=== PATIENT | male | born 1970 | race American Indian/Alaskan Native ===

== ENCOUNTER 2017-04-16 19:58 | Inpatient (IN) | payer OTHER ==
[2017-04-16] MEDS ORDERED: Sodium Chloride 0.9% 1,000 ML IV ONE ×2 (20:19→20:20)
[2017-04-16] MEDS ORDERED: (Novolin R) Insulin Human Regular 100 units/ml vial IV STA ×2 (20:21→22:03)
--- NOTE | 2017-04-16 20:23 | C.PDOC ---
History Of Present Illness 47 y/o male presents to ED for evaluation of frequent urination, and generalized weakness for the past week. Blood glucose level was found to be over 500 in the ER, pt denies any history of diabetes. Denies any other complaints. Chief Complaint (Nursing): Weakness/Neurological Deficit History Per: Patient History/Exam Limitations: no limitations Onset/Duration Of Symptoms: Days Current Symptoms Are (Timing): Still Present Past Medical History Reviewed: Historical Data, Nursing Documentation, Vital Signs Vital Signs: Last Vital Signs Temp 98.7 F 04/16/17 20:02 Pulse 103 H 04/16/17 20:02 Resp 20 04/16/17 20:02 BP 117/80 04/16/17 20:02 Pulse Ox 94 L 04/16/17 22:08 Family History: States: Unknown Family Hx - Social History Hx Alcohol Use: Yes Hx Substance Use: No Review Of Systems Except As Marked, All Systems Reviewed And Found Negative. Constitutional: Positive for: Weakness. Negative for: Fever, Chills Cardiovascular: Negative for: Chest Pain, Palpitations Respiratory: Negative for: Cough, Shortness of Breath Gastrointestinal: Negative for: Nausea, Vomiting, Abdominal Pain Genitourinary: Positive for: Frequency. Negative for: Dysuria, Hematuria, Penile Discharge Musculoskeletal: Negative for: Back Pain Neurological: Negative for: Headache, Dizziness Physical Exam - Physical Exam Appears: Non-toxic, No Acute Distress Skin: Normal Color, Warm, Dry Head: Atraumatic, Normacephalic Eye(s): bilateral: Normal Inspection Oral Mucosa: Dry Chest: Symmetrical Cardiovascular: Rhythm Regular, No Murmur Respiratory: Normal Breath Sounds, No Rales, No Rhonchi, No Wheezing Gastrointestinal/Abdominal: Soft, No Tenderness Extremity: Normal ROM, No Pedal Edema Neurological/Psych: Oriented x3, Normal Speech, No Other (no focal deficits) ED Course And Treatment - Laboratory Results Result Diagrams: 04/16/17 20:44 04/16/17 21:41 ECG: Interpreted By Me, Viewed By Me ECG Rhythm: Sinus Rhythm ECG Interpretation: No Acute Changes Interpretation Of ECG: NST, prolonged QT interval, abnormal tracings Rate From EC O2 Sat by Pulse Oximetry: 94 Pulse Ox Interpretation: Normal - Radiology CXR: Interpreted by Me, Viewed By Me CXR Interpretation: Yes: No Acute Disease, Other (normal chest film). No: Infiltrates, Cardiomegaly Medical Decision Making Medical Decision Making: Blood work, EKG, CXR, UA ordered and reviewed. Pt was given Insulin and IV fluids. Disposition Discussed With .: Raymundo Hannah Doctor Will See Patient In The: Hospital Counseled Patient/Family Regarding: Diagnosis - Disposition Disposition: HOSPITALIZED Disposition Time: 22:07 Condition: STABLE Forms: [facility] (Yi) - POA Present On Arrival: None - Clinical Impression Clinical Impression: Hyperglycemia, Diabetes mellitus, new onset - Scribe Statement The provider has reviewed the documentation as recorded by the Scribe Aminta Flowers All medical record entries made by the Scribe were at my direction and personally dictated by me. I have reviewed the chart and agree that the record accurately reflects my personal performance of the history, physical exam, medical decision making, and the department course for this patient. I have also personally directed, reviewed, and agree with the discharge instructions and disposition.
[2017-04-16] MEDS ORDERED: Sodium Chloride 0.9% 2,000 ML ONE (20:45)
[2017-04-16] MEDS ORDERED: (Novolin R) Insulin Human Regular 100 units/ml vial ONE ×2 (20:46→22:31)
[2017-04-16 20:50] LABS: BASO # 0.1 K/uL (0.0-0.2); BASO % 0.8 % (0.0-2.0); EOS # 0.4 K/uL (0.0-0.7); EOS % 4.8 % (0.0-4.0); HEMOGLOBIN 14.5 g/dL (12.0-18.0); LYMPH # 3.2 K/uL (1.0-4.3); LYMPH % 36.1 % (20.0-40.0); MEAN CELL VOLUME 87.6 fL (80.0-94.0); MEAN CORPUSCULAR HEMOGLOBIN 30.2 pg (27.0-31.0); MEAN CORPUSCULAR HGB CONC 34.5 g/dL (33.0-37.0); MEAN PLATELET VOLUME 9.9 fL (7.2-11.7); MONO # 0.7 K/uL (0.0-0.8); MONO % 7.6 % (0.0-10.0); NEUT # 4.5 K/uL (1.8-7.0); NEUT % 50.7 % (50.0-75.0); NRBC % 0.2 % (0.0-2.0); RBC 4.8 Mil/uL (4.40-5.90); RED CELL DISTRIBUTION WIDTH 13.1 % (11.5-14.5); WHITE BLOOD COUNT 8.9 K/uL (4.8-10.8)
[2017-04-16 21:01] LABS: URINE BILIRUBIN NEGATIVE (NEGATIVE); URINE BLOOD NEGATIVE (NEGATIVE); URINE CLARITY Clear (Clear); URINE COLOR Colorless (YELLOW); URINE GLUCOSE (UA) 3+ mg/dL (Normal); URINE LEUKOCYTE ESTERASE NEG Leu/uL (Negative); URINE PROTEIN NEGATIVE (NEGATIVE); URINE UROBILINOGEN NORMAL mg/dL (0.2-1.0)
--- NOTE | 2017-04-16 21:04 | RAD ---
HISTORY: Diabetic COMPARISON: None available. TECHNIQUE: Chest PA and lateral FINDINGS: Examination limited by habitus. LUNGS: No focal consolidation. Please note that chest x-ray has limited sensitivity for the detection of pulmonary masses. PLEURA: No significant pleural effusion identified. No definite pneumothorax . CARDIOVASCULAR: The cardiomediastinal silhouette appears within normal limits of size. OSSEOUS STRUCTURES: Degenerative changes of the spine. VISUALIZED UPPER ABDOMEN: Unremarkable. OTHER FINDINGS: None. IMPRESSION: No focal consolidation identified.
[2017-04-16 21:10] LABS: ALBUMIN 4.7 g/dL (3.5-5.0); ALT/SGPT 54 U/L (21-72); AST/SGOT 33 U/L (17-59); BLOOD UREA NITROGEN 20 mg/dL (9-20); CALCIUM 9.8 mg/dl (8.6-10.4); GFR AFRICAN-AMERICAN > 60; GFR NON-AFRICAN AMERICAN > 60; LIPASE 94 U/L (23-300)
[2017-04-16 21:11] LABS: ABG ALLEN TEST POS; ARTERIAL BLOOD GAS HCO3 25.9 mmol/L (21-28); ARTERIAL BLOOD GAS HEMOGLOBIN 12.7 g/dL (11.7-17.4); ARTERIAL BLOOD GAS O2 SAT 92.6 % (95-98); ARTERIAL BLOOD GAS PCO2 46 mm/Hg (35-45); ARTERIAL BLOOD GAS PH 7.38 (7.35-7.45); ARTERIAL BLOOD GAS PO2 56 mm/Hg (80-100); ARTERIAL BLOOD GAS TCO2 28.6 mmol/L (22-28)
[2017-04-16 22:00] LABS: BLOOD UREA NITROGEN 20 mg/dL (9-20); CALCIUM 9.3 mg/dl (8.6-10.4); GFR AFRICAN-AMERICAN > 60; GFR NON-AFRICAN AMERICAN > 60
[2017-04-17] MEDS ORDERED: (Lantus) Insulin Glargine, Recombinant SC ONE (09:00)
[2017-04-17] MEDS: Enoxaparin 40 mg Syringe SC SCH (09:57)
[2017-04-17] MEDS ORDERED: Sodium Chloride 0.9% 1,000 ML IV SCH (10:15)
[2017-04-17 10:52] LABS: MEAN CELL VOLUME 87.2 fL (80.0-94.0); MEAN CORPUSCULAR HEMOGLOBIN 29.8 pg (27.0-31.0); MEAN CORPUSCULAR HGB CONC 34.2 g/dL (33.0-37.0); MEAN PLATELET VOLUME 9.8 fL (7.2-11.7); RBC 4.35 Mil/uL (4.40-5.90); RED CELL DISTRIBUTION WIDTH 13.1 % (11.5-14.5); WHITE BLOOD COUNT 7.7 K/uL (4.8-10.8)
[2017-04-17 11:09] LABS: BLOOD UREA NITROGEN 18 mg/dL (9-20); CALCIUM 9.1 mg/dl (8.6-10.4); GFR AFRICAN-AMERICAN > 60; GFR NON-AFRICAN AMERICAN > 60
[2017-04-17] MEDS ORDERED: (Novolog) Insulin Aspart, Recombinant 100 u/ml 10 ml vial SC SCH (11:30)
[2017-04-17] MEDS: (Novolog) Insulin Aspart, Recombinant 100 u/ml 10 ml vial SC SCH ×3 (13:17→22:07)
[2017-04-17] MEDS: Sodium Chloride 0.9% 1,000 ML IV SCH ×2 (16:17→21:10)
[2017-04-17] MEDS ORDERED: (Lantus) Insulin Glargine, Recombinant SC SCH (22:00)
--- NOTE | 2017-04-17 22:25 | CP.PCM.PN ---
Subjective - Date & Time of Evaluation Date of Evaluation: 04/17/17 Time of Evaluation: 17:00 - Subjective Subjective: Pt is seen and evaluated during routine follow up rounds today Objective - Vital Signs/Intake and Output Vital Signs (last 24 hours): Temp Pulse Resp BP Pulse Ox 98.1 F 67 20 124/77 97 04/17/17 16:00 04/17/17 16:00 04/17/17 16:00 04/17/17 16:00 04/17/17 16:00 - Medications Medications: Current Medications Enoxaparin Sodium (Lovenox) 40 mg SC DAILY [facility] Last Admin: 04/17/17 09:57 Dose: 40 mg Sodium Chloride (Sodium Chloride 0.9%) 1,000 mls @ 200 mls/hr IV .Q5H [facility] Last Admin: 04/17/17 21:10 Dose: 200 mls/hr Insulin Aspart (Novolog) 0 unit SC ACHS [facility] PRN Reason: Protocol Last Admin: 04/17/17 22:07 Dose: 3 unit Insulin Glargine (Lantus) 20 unit SC [facility] Last Admin: 04/17/17 22:08 Dose: 20 units Metformin HCl (Glucophage) 500 mg PO BID [facility] Last Admin: 04/17/17 17:20 Dose: 500 mg Rosuvastatin Calcium (Crestor) 20 mg PO HS [facility] Last Admin: 04/17/17 22:08 Dose: 20 mg - Labs Labs: 04/17/17 10:47 04/17/17 10:47
[2017-04-18] MEDS: Sodium Chloride 0.9% 1,000 ML IV SCH ×3 (08:04→14:00)
[2017-04-18] MEDS: (Novolog) Insulin Aspart, Recombinant 100 u/ml 10 ml vial SC SCH ×4 (08:25→21:26)
[2017-04-18] MEDS: Enoxaparin 40 mg Syringe SC SCH (09:31)
[2017-04-18] MEDS: (Lantus) Insulin Glargine, Recombinant SC SCH (17:30)
--- NOTE | 2017-04-18 20:22 | CARD ---
APPROVED REPORT EKG Measurement Heart [id number] <Conclusion> Normal sinus rhythm Prolonged QT Abnormal ECG
--- NOTE | 2017-04-18 22:49 | CP.PCM.PN ---
Subjective - Date & Time of Evaluation Date of Evaluation: 04/18/17 Time of Evaluation: 19:40 - Subjective Subjective: Pt is seen and examined today, blood sugars are high, on sliding scale insulin and given diabetic information Objective - Vital Signs/Intake and Output Vital Signs (last 24 hours): Temp Pulse Resp BP Pulse Ox 98.4 F 79 20 132/67 95 04/18/17 15:49 04/18/17 15:49 04/18/17 15:49 04/18/17 15:49 04/18/17 15:49 Intake and Output: 04/18/17 04/19/17 18:59 06:59 Intake Total 1880 800 Balance 1880 800 - Medications Medications: Current Medications Docusate Sodium (Colace) 100 mg PO BID [facility] Last Admin: 04/18/17 17:33 Dose: Not Given Enoxaparin Sodium (Lovenox) 40 mg SC DAILY [facility] Last Admin: 04/18/17 09:31 Dose: 40 mg Insulin Aspart (Novolog) 0 unit SC [facility] PRN Reason: Protocol Last Admin: 04/18/17 21:26 Dose: 3 unit Insulin Glargine (Lantus) 20 unit SC BID [facility] Last Admin: 04/18/17 17:30 Dose: 20 units Metformin HCl (Glucophage) 500 mg PO BID [facility] Last Admin: 04/18/17 17:30 Dose: 500 mg Rosuvastatin Calcium (Crestor) 20 mg PO [facility] Last Admin: 04/18/17 21:26 Dose: 20 mg - Labs Labs: 04/17/17 10:47 04/17/17 10:47 - Constitutional Appears: No Acute Distress - Head Exam Head Exam: ATRAUMATIC, NORMAL INSPECTION, NORMOCEPHALIC - Eye Exam Eye Exam: EOMI, Normal appearance, PERRL Pupil Exam: NORMAL ACCOMODATION, PERRL - Respiratory Exam Respiratory Exam: Clear to Ausculation Bilateral, NORMAL BREATHING PATTERN - Cardiovascular Exam Cardiovascular Exam: REGULAR RHYTHM, +S1, +S2. absent: Murmur - GI/Abdominal Exam GI & Abdominal Exam: Soft, Normal Bowel Sounds. absent: Tenderness Assessment and Plan (1) Diabetes mellitus, new onset Status: Acute (2) Hyperglycemia Status: Acute
[2017-04-19 07:33] LABS: HEMOGLOBIN 13.1 g/dL (12.0-18.0); MEAN CELL VOLUME 85.7 fL (80.0-94.0); MEAN CORPUSCULAR HEMOGLOBIN 29.9 pg (27.0-31.0); MEAN CORPUSCULAR HGB CONC 34.8 g/dL (33.0-37.0); RBC 4.39 Mil/uL (4.40-5.90); RED CELL DISTRIBUTION WIDTH 12.7 % (11.5-14.5); WHITE BLOOD COUNT 6.6 K/uL (4.8-10.8)
[2017-04-19 07:40] VITALS: O2SAT 96
[2017-04-19 07:46] LABS: BLOOD UREA NITROGEN 12 mg/dL (9-20); CALCIUM 8.7 mg/dl (8.6-10.4); GFR AFRICAN-AMERICAN > 60; GFR NON-AFRICAN AMERICAN > 60
[2017-04-19] MEDS: (Novolog) Insulin Aspart, Recombinant 100 u/ml 10 ml vial SC SCH ×2 (08:25→12:25)
[2017-04-19] MEDS: Enoxaparin 40 mg Syringe SC SCH (09:56)
[2017-04-19] MEDS: (Lantus) Insulin Glargine, Recombinant SC SCH (09:58)
--- NOTE | 2017-04-19 14:03 | CP.PCM.PN ---
Subjective - Date & Time of Evaluation Date of Evaluation: 04/19/17 Time of Evaluation: 14:03 - Subjective Subjective: PATIENT WAS ADMITTED FOR HYPERGLYCEMIA DENIES CHEST PAIN; SOB / NAUSEA OR VOMITING/ LEG PAIN OR BLURRED VISION NO SIGN OF DISTRESS NOTED Objective - Vital Signs/Intake and Output Vital Signs (last 24 hours): Temp Pulse Resp BP Pulse Ox 98.7 F 82 18 115/72 96 04/19/17 07:10 04/19/17 07:10 04/19/17 07:10 04/19/17 07:10 04/19/17 07:10 Intake and Output: 04/19/17 04/19/17 06:59 18:59 Intake Total 800 Balance 800 - Medications Medications: Current Medications Docusate Sodium (Colace) 100 mg PO BID [facility] Last Admin: 04/19/17 09:57 Dose: Not Given Enoxaparin Sodium (Lovenox) 40 mg SC DAILY [facility] Last Admin: 04/19/17 09:56 Dose: 40 mg Insulin Aspart (Novolog) 0 unit SC [facility] PRN Reason: Protocol Last Admin: 04/19/17 12:25 Dose: 8 unit Insulin Glargine (Lantus) 20 unit SC BID [facility] Last Admin: 04/19/17 09:58 Dose: 20 units Metformin HCl (Glucophage) 500 mg PO BID [facility] Last Admin: 04/19/17 09:56 Dose: 500 mg Rosuvastatin Calcium (Crestor) 20 mg PO [facility] Last Admin: 04/18/17 21:26 Dose: 20 mg - Labs Labs: 04/19/17 07:10 04/19/17 07:09 Assessment and Plan - Assessment and Plan (Free Text) Assessment: PATIENT IS SEEN AND EXAMINED BY DR SANDOVAL AND COMPUTER NUMERICAL CONTROL MACHINIST DIABETIC NURSE CONSULTED/ INSTRUCT PATIENT ABOUT DM AND INSULIN INJECTION AND S/ S OF HYPOGLYCEMIA PATIENT STATED THAT HE FEEL CONFIDENT ON HOW TO DO INJECTION/ HYPOGLYCEMIA S/S / AND HOW TO CHECK A BLOOD SUGAR AT HOME FOLLOW UP WITH DR SANDOVAL IN 1-2 WEEK AT HIS OFFICE --CALL FOR YOUR APPOINTMENT CONTINUE ALL YOUR HOME MEDICATION NEW PRESCRIPTION GIVEN BY DR SANDOVAL ]TUOJEO 40 UNIT AT HS 4 VIAL CHEMISTRIP TO CHECK BLOOD SUGAR THREE TIME A DAY LANCET TO CHECK BLOOD SUGAR THREE TIME A DAY GLUCOMETER GLUCOPAHGE 850 MG ALOGLIPTIN 25 MG BY MOUTH DAILY BD INSULIN SYRINGE ACTIVITY TOLERATED CALL DR SANDOVAL OR GO TO THE EMERGENCY ROOM IF SYMPTOMS RETURN OR WORSENING DISCUSS WITH PATIENT WHO AGREE AND VERBALIZED UNDERSTANDING
[2017-04-19 15:50] VITALS: BP 110/72; PULSE 83; RESP 20; TEMP 98.1
--- NOTE | 2017-04-19 23:32 | CP.PCM.DIS ---
Provider - Provider Date of Admission: 04/16/17 22:08 Attending physician: Raymundo Hannah MD Time Spent in preparation of Discharge (in minutes): 45 Diagnosis - Discharge Diagnosis (1) Diabetes mellitus, new onset Status: Acute (2) Hyperglycemia Status: Acute Hospital Course - Lab Results Lab Results: Most Recent Lab Values WBC 6.6 K/uL (4.8-10.8) 04/19/17 07:10 RBC 4.39 Mil/uL (4.40-5.90) L 04/19/17 07:10 Hgb 13.1 g/dL (12.0-18.0) 04/19/17 07:10 Hct 37.6 % (35.0-51.0) 04/19/17 07:10 MCV 85.7 fL (80.0-94.0) 04/19/17 07:10 MCH 29.9 pg (27.0-31.0) 04/19/17 07:10 MCHC 34.8 g/dL (33.0-37.0) 04/19/17 07:10 RDW 12.7 % (11.5-14.5) 04/19/17 07:10 Plt Count 216 K/uL (130-400) 04/19/17 07:10 MPV 10.0 fL (7.2-11.7) 04/19/17 07:10 Neut % (Auto) 50.7 % (50.0-75.0) 04/16/17 20:44 Lymph % (Auto) 36.1 % (20.0-40.0) 04/16/17 20:44 [place] % (Auto) 7.6 % (0.0-10.0) 04/16/17 20:44 Eos % (Auto) 4.8 % (0.0-4.0) H 04/16/17 20:44 Baso % (Auto) 0.8 % (0.0-2.0) 04/16/17 20:44 Neut # (Auto) 4.5 K/uL (1.8-7.0) 04/16/17 20:44 Lymph # (Auto) 3.2 K/uL (1.0-4.3) 04/16/17 20:44 [place] # (Auto) 0.7 K/uL (0.0-0.8) 04/16/17 20:44 Eos # (Auto) 0.4 K/uL (0.0-0.7) 04/16/17 20:44 Baso # (Auto) 0.1 K/uL (0.0-0.2) 04/16/17 20:44 Puncture Site Rradial 04/16/17 21:00 pCO2 46 mm/Hg (35-45) H 04/16/17 21:00 pO2 56 mm/Hg (80-100) L 04/16/17 21:00 HCO3 25.9 mmol/L (21-28) 04/16/17 21:00 ABG pH 7.38 (7.35-7.45) 04/16/17 21:00 ABG Total CO2 28.6 mmol/L (22-28) H 04/16/17 21:00 ABG O2 Saturation 92.6 % (95-98) L 04/16/17 21:00 ABG Base Excess 1.5 mmol/L (-2.0-3.0) 04/16/17 21:00 ABG Hemoglobin 12.7 g/dL (11.7-17.4) 04/16/17 21:00 ABG Carboxyhemoglobin 1.7 % (0.5-1.5) H 04/16/17 21:00 POC ABG HHb (Measured) 7.2 % (0.0-5.0) H 04/16/17 21:00 ABG Methemoglobin 0.9 % (0.0-3.0) 04/16/17 21:00 Sabas Test Pos 04/16/17 21:00 A-a O2 Difference 36.0 mm/Hg 04/16/17 21:00 Respiratory Index 0.6 04/16/17 21:00 Hgb O2 Saturation 90.1 % (95.0-98.0) L 04/16/17 21:00 FiO2 21.0 % 04/16/17 21:00 Sodium 135 mmol/L (132-148) 04/19/17 07:09 Potassium 3.7 mmol/L (3.6-5.2) 04/19/17 07:09 Chloride 99 mmol/L (98-107) 04/19/17 07:09 Carbon Dioxide 25 mmol/L (22-30) 04/19/17 07:09 Anion Gap 15 (10-20) 04/19/17 07:09 BUN 12 mg/dL (9-20) 04/19/17 07:09 Creatinine 0.7 mg/dL (0.8-1.5) L 04/19/17 07:09 Est GFR ( Amer) > 60 04/19/17 07:09 Est GFR (Non-Af Amer) > 60 04/19/17 07:09 POC Glucose (mg/dL) 306 mg/dL (65-110) H 04/19/17 16:02 Random Glucose 311 mg/dL (75-110) H 04/19/17 07:09 Hemoglobin A1c 11.2 % (4.2-6.5) H 04/19/17 07:10 Calcium 8.7 mg/dl (8.6-10.4) 04/19/17 07:09 Total Bilirubin 0.7 mg/dL (0.2-1.3) 04/16/17 20:44 AST 33 U/L (17-59) 04/16/17 20:44 ALT 54 U/L (21-72) 04/16/17 20:44 Alkaline Phosphatase 167 U/L (38-126) H 04/16/17 20:44 Total Protein 9.4 g/dL (6.3-8.3) H 04/16/17 20:44 Albumin 4.7 g/dL (3.5-5.0) 04/16/17 20:44 Globulin 4.7 gm/dL (2.2-3.9) H 04/16/17 20:44 Albumin/Globulin Ratio 1.0 (1.0-2.1) 04/16/17 20:44 Lipase 94 U/L (23-300) 04/16/17 20:44 Urine Color Colorless (YELLOW) 04/16/17 20:55 Urine Clarity Clear (Clear) 04/16/17 20:55 Urine pH 5.0 (5.0-8.0) 04/16/17 20:55 Ur Specific [place] 1.032 (1.003-1.030) H 04/16/17 20:55 Urine Protein Negative mg/dL (NEGATIVE) 04/16/17 20:55 Urine Glucose (UA) 3+ mg/dL (Normal) H 04/16/17 20:55 Urine Ketones Negative mg/dL (NEGATIVE) 04/16/17 20:55 Urine Blood Negative (NEGATIVE) 04/16/17 20:55 Urine Nitrate Negative (NEGATIVE) 04/16/17 20:55 Urine Bilirubin Negative (NEGATIVE) 04/16/17 20:55 Urine Urobilinogen Normal mg/dL (0.2-1.0) 04/16/17 20:55 Ur Leukocyte Esterase Neg [place]athalie/uL (Negative) 04/16/17 20:55 Urine WBC (Auto) < 1 /hpf (0-5) 04/16/17 20:55 Urine RBC (Auto) < 1 /hpf (0-3) 04/16/17 20:55 Serum Ketones Negative (NEGATIVE) 04/16/17 20:44 - Hospital Course Hospital Course: Pt seen and examined at bedside,pt is feeling better, he is hydrating well, i increased his insulin, i expalined the pt diabetic medications and dietary and life style modifications, pt agree and understands, he is stable for discharge Discharge Exam - Head Exam Head Exam: ATRAUMATIC, NORMAL INSPECTION, NORMOCEPHALIC - Eye Exam Eye Exam: Normal appearance - ENT Exam ENT Exam: Mucous Membranes Moist - Respiratory Exam Respiratory Exam: Decreased Breath Sounds, NORMAL BREATHING PATTERN - Cardiovascular Exam Cardiovascular Exam: REGULAR RHYTHM, +S1, +S2 - GI/Abdominal Exam GI & Abdominal Exam: Normal Bowel Sounds - Rectal Exam Rectal Exam: Deferred Discharge Plan - Follow Up Plan Condition: STABLE Disposition: HOME/ ROUTINE Instructions: Insulin Injection, Blood Glucose Monitoring, Diabetes and Infections, Foot Care for Diabetics, Diabetes and Diet, How to Use an Insulin Pen, Diabetic Hyperglycemia (DC) Additional Instructions: FOLLOW UP WITH DR HANNAH IN 1-2 WEEK AT HIS OFFICE --CALL FOR YOUR APPOINTMENT CONTINUE ALL YOUR HOME MEDICATION NEW PRESCRIPTION GIVEN BY DR HANNAH ] TUOJEO 40 UNIT AT HS 4 VIAL CHEMISTRIP TO CHECK BLOOD SUGAR THREE TIME A DAY LANCET TO CHECK BLOOD SUGAR THREE TIME A DAY GLUCOMETER GLUCOPAHGE 850 MG ALOGLIPTIN 25 MG BY MOUTH DAILY BD INSULIN SYRINGE ACTIVITY TOLERATED CALL DR HANNAH OR GO TO THE EMERGENCY ROOM IF SYMPTOMS RETURN OR WORSENING Referrals: Armando Olsen MD [Staff Provider] - Raymundo Hannah MD [Staff Provider] -
== END 2017-04-19 16:38 | disposition home or self-care (01) | DRG 639 ==
LOC: C.ER 19:58 → C.9E 22:08 → C.5S 22:49
PROVIDERS: ADMIT Internal Medicine; ATTEND Internal Medicine
DX: E11.65 Type 2 diabetes mellitus with hyperglycemia (principal)